=== PATIENT | female | born 1980 | race Caucasian/White ===

== ENCOUNTER 2018-10-03 10:17 | Outpatient (REF) | payer BC, SELFPAY ==
--- NOTE | 2018-10-03 09:20 | PAPFT_PTH ---
PATIENT: MARILYN YOU LOC: [facility] U#:[id number] AGE/SX: 38/F ROOM: RE10/03/[address]: Tammy Yeung NP : 1980 BED: DIS: 10/03/2018 SPEC #: [id number] RECD: 10/03/18 12:47 STATUS: PREETHI MATTA #: [id number] JOSE: 10/03/18 09:[address]: Tammy Yeung NP DEPT: [facility] Cytology RECD BY: Vanessa Matamoros ENTERED: 10/03/18 12:47 SP TYPE: PAPFT OTHR DR: Unknown,Unknown Tissues: 1 - CX/ENDOCX FOR PAP SMEARS Procedures: PAP THIN PREP/[facility] Screening HPV DNA PROBE Comments: [id number] (CHLAMYDIA/GC)
[2018-10-04 14:39] LABS: Chlamydia Result Negative; GC Result Negative; Specimen Description SEE COMMENTS
== END 2018-10-03 10:37 ==
LOC: LBN 10:17
PROVIDERS: Visit Provider Nurse Practitioner Women's Health
DX: Z12.4 Encounter for screening for malignant neoplasm of cervix (principal); Z11.51 Encounter for screening for human papillomavirus (HPV); Z11.3 Encounter for screening for infections with a predominantly sexual mode of transmission
CPT/HCPCS: 87491; 87591; 88142; 87624